=== PATIENT | male | born 1955 | race Caucasian/White ===

== ENCOUNTER 2019-11-21 09:43 | Emergency (ER) | payer OTHER ==
[~2019-11-21] VITALS: Ht 175.3 cm; Wt 99.2 kg
[2019-11-21 09:54] VITALS: BP 133/75
--- NOTE | 2019-11-21 10:15 | NUR ---
PT TO ED STATING "MY WORK WANTS A NOTE SAYING I DON'T HAVE COVID, I HAD TO CALL IN SICK TO WORK LAST WEEK FOR R NECK/ELBOW/SHOULDER PAIN AND LAST MONTH I HAD THE FLU, I DON'T HAVE ANY SYMPTOMS NOW", PT ASKED HOW LONG IT WOULD BE AND IF WE WOULD JUST GIVE HIME A NOTE STATING HE DOESN'T HAVE COVID, PT EDUCATED WE CANNOT GIVE NOTE WITHOUT COVID TEST AND UNSURE OF HOW LONG EXACTLY ED VISIT WILL BE BUT THE AVERAGE CAN BE 1-2 HOURS/VISIT. PT STATED "OH WOW NO, OK WELL I GUESS I'LL GO, MAYBE I'LL COME BACK LATER IF I'M COUGHING". PT ENCOURAGED TO HAVE EMPLOYER CALL HEALTH DEPARTMENT OR COVID HOTLINE TO HELP TRIAGE EMPLOYEES FOR COVID SCREENING. PT AGREES AND STATES HE DOESN'T WANT TO BE SEEN FOR HIS SHOULDER PAIN OR COVID SCREENING.
== END 2019-11-21 10:19 | disposition left against medical advice (07) ==
LOC: ED 10:13
DX: M54.2 Cervicalgia (principal); M25.511 Pain in right shoulder; Z53.21 Procedure and treatment not carried out due to patient leaving prior to being seen by health care provider